=== PATIENT | female | born 1970 | race Two or more races ===

== ENCOUNTER 2019-08-24 10:05 | Emergency (ER) | payer OTHER ==
[~2019-08-24] VITALS: Ht 152.4 cm; Wt 89.8 kg
--- NOTE | 2019-08-24 10:05 | NUR ---
PT VIRA FROM WORK C/O R SHOULDER, R HIP AND LOWER BACK PAIN S/P SLIP AND FALL, DENIES RENARD, AAOX4 [place] SPEAKING ONLY, NOT IN RESPIRATORY DISTRESS, HOOKED TO MONITOR, KEPT RESTED AND COMFORTABLE, WILL CONTINUE TO MONITOR.
--- NOTE | 2019-08-24 10:20 | NUR ---
SEEN AND EXAMINED BY .
[2019-08-24] MEDS ORDERED: ACETAMINOPHEN ES 500 MG TABLET ONE (10:26)
[2019-08-24] MEDS ORDERED: IBUPROFEN 600 MG TABLET PO ONE ×2 (10:26→10:30)
[2019-08-24] MEDS ORDERED: ACETAMINOPHEN ES 500 MG TABLET PO ONE (10:30)
--- NOTE | 2019-08-24 10:35 | NUR ---
PT IS WHEELED TO CT SCAN VIA [facility].
--- NOTE | 2019-08-24 11:13 | NUR ---
PT'S DAUGHTER CHRISSIE [phone]
--- NOTE | 2019-08-24 12:41 | NUR ---
Patient discharged to home in stable condition. Written and verbal after care instructions given. Patient verbalizes understanding of instruction.
[2019-08-24 12:42] VITALS: BP 129/91
== END 2019-08-24 12:53 | disposition home or self-care (01) ==
LOC: ER 10:08
DX: S29.012A Strain of muscle and tendon of back wall of thorax, initial encounter (principal); S39.012A Strain of muscle, fascia and tendon of lower back, initial encounter; M25.511 Pain in right shoulder; I10 Essential (primary) hypertension; J45.909 Unspecified asthma, uncomplicated; W01.0XXA Fall on same level from slipping, tripping and stumbling without subsequent striking against object, initial encounter; Y93.89 Activity, other specified; Y92.89 Other specified places as the place of occurrence of the external cause; Y99.8 Other external cause status
CPT/HCPCS: 72128-TC; 72131-TC; 72170-TC; 73030-TC

== ENCOUNTER 2019-08-29 10:43 | Emergency (ER) | payer OTHER ==
[~2019-08-29] VITALS: Ht 152.4 cm; Wt 88.9 kg
--- NOTE | 2019-08-29 11:00 | NUR ---
C/O R HIP PAIN RADIATING TO R FOOT, WAS HERE LAST 08/24/19 FOR SAME REASON GIVEN RX OF IBUPROFEN AND NOT WORKING. PATIENT A/OX4, BREATHING EVEN AND UNLABORED, NO SOB NOTED, KEPT COMFORTABLE.
[2019-08-29] MEDS ORDERED: KETOROLAC TROMETHAMINE INJ 60 MG/2 ML VIAL IM ONE ×2 (11:27→11:30)
--- NOTE | 2019-08-29 11:47 | NUR ---
Patient discharged to home in stable condition. Written and verbal after care instructions given. Patient verbalizes understanding of instruction.
[2019-08-29 11:49] VITALS: BP 152/99
== END 2019-08-29 11:50 | disposition home or self-care (01) ==
LOC: ER 10:46
DX: M54.30 Sciatica, unspecified side (principal); I10 Essential (primary) hypertension; J45.909 Unspecified asthma, uncomplicated; G43.909 Migraine, unspecified, not intractable, without status migrainosus
CPT/HCPCS: 96372; 99283; J1885